=== PATIENT | male | born 1980 | race Caucasian/White ===

== ENCOUNTER 2019-04-01 09:55 | Outpatient (CLI) | payer OTHER ==
[2019-04-01 11:21] LABS: FREE T4 (FREE THYROXINE) 0.81 ng/dL (0.76-1.46)
== END 2019-04-01 23:59 | disposition home or self-care (01) ==
LOC: RAD 09:55
PROVIDERS: ATTEND Orthopaedic Surgery
DX: S92.901A Unspecified fracture of right foot, initial encounter for closed fracture (principal); E07.9 Disorder of thyroid, unspecified; S62.609A Fracture of unspecified phalanx of unspecified finger, initial encounter for closed fracture; X58.XXXA Exposure to other specified factors, initial encounter; Y93.89 Activity, other specified; Y92.89 Other specified places as the place of occurrence of the external cause; Y99.8 Other external cause status
CPT/HCPCS: 36415; 84439; 84443; 84481

== ENCOUNTER 2020-02-11 14:56 | Outpatient (CLI) | payer OTHER | END 2020-02-11 23:59 | disposition home or self-care (01) | LOC: CFH 14:56 | PROVIDERS: ATTEND Nurse Practitioner Family | DX: Z02.9 Encounter for administrative examinations, unspecified (principal) ==